=== PATIENT | female | born 1935 | race Caucasian/White ===

== ENCOUNTER 2021-06-16 16:26 | Emergency (ER) | payer MEDICARE, BC ==
[~2021-06-16] VITALS: Ht 160 cm; Wt 73.7 kg
[2021-06-16] MEDS ORDERED: ACETAMINOPHEN325 M1 PO (16:50)
[2021-06-16] MEDS ORDERED: ARICEPT10 M1 PO (16:50)
[2021-06-16] MEDS ORDERED: LORATIDINE 10 M10 M1 PO (16:50)
[2021-06-16] MEDS ORDERED: OMEPRAZOLE40 MG PO (16:50)
[2021-06-16] MEDS ORDERED: ACETAMINOPHEN325 MG PO (16:50)
[2021-06-16] MEDS ORDERED: VENLAFAXINE HCL75 M2 PO (16:51)
[2021-06-16 17:12] LABS: HEMATOCRIT 40.6 % (37.0-47.0); HEMOGLOBIN 13.8 gm/dL (12.0-15.0); MCH 32.7 pg (26.0-34.0); MCHC 34.1 g/dL (28.0-37.0); MCV 95.8 fL (80.0-100.0); MPV 8.8 fl. (7.2-11.1); RBC 4.24 mil/uL (4.20-5.00); RDW-CV 13.5 % (10.5-14.5); WBC 6.8 thou/uL (4.0-11.0)
[2021-06-16 17:20] LABS: CALCIUM 8.5 mg/dL (8.5-10.1); CREATININE 0.9 mg/dL (0.6-1.3); POTASSIUM 3.5 mmol/L (3.5-5.1)
[2021-06-16 19:14] VITALS: BP 170/85
--- NOTE | 2021-06-17 12:32 | EKG ---
[place] [address] ELECTROCARDIOGRAM REPORT Name: JAVIER DELA CRUZ Room: [facility] [place]#: [id number] Admission: 06/16/21 Attend Phys: Discharge: 06/16/21 Date of : 37 Date of Service: 06/16/21 1708 Report #: [id number] THIS REPORT FOR: //name// [facility] ED Test Date: 2021-06-16 Test Time: 17:08:54 Pat Name: JAVIER DELA CRUZ Department: Room: Gender: [employer] Superintendent: : [id number] Requested By: Danae Singh Order Number: [id number] MD: Bj Dockery Measurements Intervals [place] Rate: 89 P: 78 AK: 164 QRS: -49 QRSD: 91 T: 58 QT: 374 QTc: 456 Interpretive Statements Sinus rhythm Probable left atrial enlargement Left ventricular hypertrophy Inferior infarct, old Anterior infarct, old No previous ECG available for comparison Electronically Signed On 06-17-2021 12:32:26 [employer]ILDING [employer]PERVIS[employer] by Bj Dockery [email or web address] <ELECTRONICALLY SIGNED> By: Bj Dockery MD, [facility] 06/17/21 1232 1708 1708 Bj Dockery MD, [facility] /EPI
== END 2021-06-16 19:17 | disposition short-term general hospital (02) ==
LOC: M.ERS 16:26
PROVIDERS: Physician Assistant
DX: I62.00 Nontraumatic subdural hemorrhage, unspecified (principal); F32.9 Major depressive disorder, single episode, unspecified; F41.9 Anxiety disorder, unspecified; Z79.899 Other long term (current) drug therapy; Z88.2 Allergy status to sulfonamides; Z91.040 Latex allergy status; Z88.0 Allergy status to penicillin